=== PATIENT | female | born 1975 | race Caucasian/White ===

== ENCOUNTER 2018-03-10 21:52 | Emergency (ER) | payer MEDICAID ==
[2018-03-10 22:03] VITALS: BP 131/85
[2018-03-10] MEDS ORDERED: predniSONE 20 MG Tab PO ONE (22:17)
[2018-03-10] MEDS ORDERED: Famotidine 20 MG Tab PO ONE (22:17)
--- NOTE | 2018-03-10 22:47 | EDM.PDOC ---
ED HPI GENERAL MEDICAL PROBLEM - General Chief Complaint: Allergic Reaction Stated Complaint: BEE STING ON RIGHT WRIST Time Seen by Provider: 03/10/18 22:03 Source of Information: Reports: Patient History Limitations: Reports: No Limitations - History of Present Illness INITIAL COMMENTS - FREE TEXT/NARRATIVE: The patient presents with a bee sting. This happened about 8pm tonight. She got stung in her right inner wrist. She has some swelling and pain there but she also has some itching in her throat and some swelling. She has no shortness of breath. She did react to wasp bites before. She had rashes from that. She never had trouble breathing before. She has no chest pain, abdominal pain, nausea or vomiting. Onset: Sudden Duration: Hour(s): Location: Reports: Upper Extremity, Right (inner wrist) Quality: Reports: Sharp Severity: Moderate Improves with: Reports: Immobilization Worsens with: Reports: Movement Context: Reports: Other (Stung by a bee) Associated Symptoms: Denies: Chest Pain, Cough, Fever/Chills, Headaches, Nausea/ Vomiting, Shortness of Breath Right Arm Pain Score (Numeric/FACES): 8 - Related Data Allergies Allergy/AdvReac Type Severity Reaction Status Date / Time levoquin Allergy Bronchospas Uncoded 03/10/18 22:03 ms Home Meds: Home Meds Levothyroxine Sodium [Tirosint] 125 mcg PO DAILY 08/13/16 [History] EPINEPHrine [Epipen] 0.3 mg IM ASDIRECTED PRN #1 pen 03/10/18 [Rx] FLUoxetine HCl [Fluoxetine HCl] 20 mg PO BID 03/10/18 [History] Past Medical History Psychiatric History: Reports: Anxiety Endocrine/Metabolic History: Reports: Hypothyroidism - Past Surgical History HEENT Surgical History: Reports: Other (See Below) Endocrine Surgical History: Reports: Thyroidectomy Other Endocrine Surgeries/Procedures: had thyroid cancer Musculoskeletal Surgical History: Reports: Other (See Below) Social & Family History - Tobacco Use Smoking Status *Q: Never Smoker - Caffeine Use Caffeine Use: Reports: None - Recreational Drug Use Recreational Drug Use: No ED ROS ALLERGIC REACTION - Review of Systems Review Of Systems: See Below Constitutional: Reports: No Symptoms HEENT: Reports: Other (Itching in her throat and swelling) Respiratory: Reports: No Symptoms Cardiovascular: Reports: No Symptoms Endocrine: Reports: No Symptoms GI/Abdominal: Reports: No Symptoms : Reports: No Symptoms Musculoskeletal: Reports: Other (Pain an swelling right inner wrist) ED EXAM GENERAL NO PERIP PULSE - Physical Exam Exam: See Below Exam Limited By: No Limitations General Appearance: Alert, No Apparent Distress Ears: Normal External Exam Nose: Normal Inspection Throat/Mouth: Normal Inspection Head: Atraumatic, Normocephalic Neck: Normal Inspection Respiratory/Chest: No Respiratory Distress, Lungs Clear, Normal Breath Sounds Cardiovascular: Regular Rate, Rhythm, No Edema, No Murmur GI/Abdominal: Soft, Non-Tender, No Organomegaly, No Mass Back Exam: Normal Inspection Extremities: Normal Inspection, Other (Puncture wound to her right inner wrist. With mild edema and mild erythema. There is no stinger in the wound.) Course - Vital Signs Last Recorded V/S: Last Vital Signs Temp 98.1 F 03/10/18 22:00 Pulse 74 03/10/18 22:00 Resp 18 03/10/18 22:00 BP 131/85 03/10/18 22:00 Pulse Ox 100 03/10/18 22:00 - Orders/Labs/Meds Meds: Medications Discontinued Medications Generic Name Dose Route Start Last Admin Trade Name Freq PRN Reason Stop Dose Admin Famotidine 20 mg 03/10/18 22:17 03/10/18 22:21 Pepcid PO 03/10/18 22:18 20 mg ONETIME ONE Administration Prednisone 40 mg 03/10/18 22:17 03/10/18 22:21 Prednisone PO 03/10/18 22:18 40 mg ONETIME ONE Administration - Re-Assessments/Exams Free Text/Narrative Re-Assessment/Exam: 03/10/18 22:46 I ordered some pepcid 20mg by mouth and prednisone 40mg by mouth. 03/10/18 22:53 She feels good. I will discharge her with some prednisone and I feel she may need an epi pen. Departure - Departure Time of Disposition: 22:55 Disposition: Home, Self-Care 01 Condition: Good Clinical Impression: Bee sting allergy - Discharge Information Prescriptions: EPINEPHrine [Epipen] 0.3 mg IM ASDIRECTED PRN #1 pen PRN Reason: Allergies Referrals: Enrico Solis MD [Primary Care Provider] - Forms: ED Department Discharge Additional Instructions: Take the prednisone 40mg daily for 5 days. Take pepcid daily for 5 days. Take benadryl as needed for any itching or swelling. Please return if you are worse.
== END 2018-03-10 23:00 | disposition home or self-care (01) ==
LOC: JD.ED 21:52
DX: T63.441A Toxic effect of venom of bees, accidental (unintentional), initial encounter (principal); E03.9 Hypothyroidism, unspecified; Z79.899 Other long term (current) drug therapy; F41.9 Anxiety disorder, unspecified; Z88.8 Allergy status to other drugs, medicaments and biological substances
CPT/HCPCS: 99283; A9270

== ENCOUNTER 2018-03-18 14:11 | Emergency (ER) | payer MEDICAID ==
[2018-03-18 14:21] VITALS: BP 144/75
--- NOTE | 2018-03-18 14:30 | EDM.PDOC ---
ED HPI GENERAL MEDICAL PROBLEM - General Chief Complaint: Lower Extremity Injury/Pain Stated Complaint: LT FOOT/ANKLE PAIN Time Seen by Provider: 03/18/18 14:19 Source of Information: Reports: Patient, RN Notes Reviewed - History of Present Illness INITIAL COMMENTS - FREE TEXT/NARRATIVE: 42 year old female comes in with L foot pain, walked 4 miles, [place] walk 2 days ago, onset of L mid foot pain toward end point of walk, not aware of torsion, blow or fall. continued worsening pain L foot, now becoming red and swollen as well. increased pain with wt bearing. 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 Left Ankle Pain Score (Numeric/FACES): 5 - Related Data Allergies Allergy/AdvReac Type Severity Reaction Status Date / Time levoquin Allergy Bronchospas Uncoded 03/18/18 14:21 ms Home Meds: Home Meds Levothyroxine Sodium [Tirosint] 125 mcg PO DAILY 08/13/16 [History] EPINEPHrine [Epipen] 0.3 mg IM ASDIRECTED PRN #1 pen 03/10/18 [Rx] FLUoxetine HCl [Fluoxetine HCl] 20 mg PO BID 03/10/18 [History] Cephalexin 500 mg PO TID #20 capsule 03/18/18 [Rx] Past Medical History Psychiatric History: Reports: Anxiety Endocrine/Metabolic History: Reports: Hypothyroidism - Past Surgical History HEENT Surgical History: Reports: Other (See Below) Endocrine Surgical History: Reports: Thyroidectomy Other Endocrine Surgeries/Procedures: had thyroid cancer Musculoskeletal Surgical History: Reports: Other (See Below) Social & Family History - Caffeine Use Caffeine Use: Reports: None Review of Systems - Review of Systems Review Of Systems: See Below Constitutional: Denies: Chills, Fever Mouth/Throat: Reports: No Symptoms Respiratory: Denies: Shortness of Breath Cardiovascular: Denies: Chest Pain Musculoskeletal: Reports: Foot Pain Skin: Reports: Erythema (L lateral distal foot) Neurological: Reports: Difficulty Walking. Denies: Numbness, Tingling ED EXAM, GENERAL - Physical Exam Exam: See Below General Appearance: Alert, No Apparent Distress Head: Atraumatic Neck: Supple Respiratory/Chest: No Respiratory Distress Extremities: Redness, Other (tender L lateral mid and distal foot, mild swelling present as well) Skin Exam: Warm, Dry, Erythema (L lateral foot) Course - Vital Signs Last Recorded V/S: Last Vital Signs Temp 98.4 F 03/18/18 14:17 Pulse 100 03/18/18 14:17 Resp 20 03/18/18 14:17 BP 144/75 H 03/18/18 14:17 Pulse Ox 98 03/18/18 14:17 - Orders/Labs/Meds Orders: Active Orders 24 hr Category Date Time Status Foot Comp Min 3V Lt [CR] Stat Exams 03/18/18 14:36 Taken - Re-Assessments/Exams Free Text/Narrative Re-Assessment/Exam: 03/18/18 15:54 X rays of foot are neg for fx, there is what looks like an insect bite present, concerns for cellulitis, discharge instr. as documented Departure - Departure Time of Disposition: 14:57 Disposition: Home, Self-Care 01 Condition: Fair Clinical Impression: Cellulitis Qualifiers: Site of cellulitis: extremity Site of cellulitis of extremity: lower extremity Laterality: left Qualified Code(s): L03.116 - Cellulitis of left lower limb - Discharge Information Prescriptions: Cephalexin 500 mg PO TID #20 capsule Instructions: Cellulitis, Adult Referrals: Enrico Solis MD [Primary Care Provider] - Forms: ED Department Discharge Additional Instructions: rest and elevate foot as much as possible, cephalexin antibiotic 500 mg 3 times daily for 1 week, follow up clinic if not much better within 3 to 5 days as expected. - My Orders Last 24 Hours: My Active Orders 03/18/18 14:36 Foot Comp Min 3V Lt [CR] Stat - Assessment/Plan Last 24 Hours: My Active Orders 03/18/18 14:36 Foot Comp Min 3V Lt [CR] Stat
--- NOTE | 2018-03-19 10:01 | CR ---
Left foot: Four views of the left foot were obtained. Comparison: No prior foot exam. Joint spaces are preserved. No fracture, dislocation or other bony abnormality is identified. Impression: 1. No abnormality is identified on left foot exam. Diagnostic code #1
== END 2018-03-18 15:29 | disposition home or self-care (01) ==
LOC: JD.ED 14:11
DX: L03.116 Cellulitis of left lower limb (principal); E03.9 Hypothyroidism, unspecified; F41.9 Anxiety disorder, unspecified; Z88.8 Allergy status to other drugs, medicaments and biological substances; Z79.899 Other long term (current) drug therapy
CPT/HCPCS: 73630-26-LT; 73630-LT; 99283